=== PATIENT | male | born 1960 | race African-American/Black ===

== ENCOUNTER 2018-05-02 09:16 | Outpatient (CLI) | payer MEDICARE, MEDICAID ==
--- NOTE | 2018-05-02 11:58 | CT ---
CT LUMBAR SPINE WITHOUT CONTRAST: Technique: Multiple axial tomograms were obtained through the lumbar spine with multiplanar reconstru ction. Indication: Low back pain. FINDINGS: Lumbar vertebrae maintain normal height and alignment. The disc spaces are maintained. There are mode rate degenerative osteophytes seen anteriorly at L4-5 and L5-S1. No evidence of spondylolysis or spon dylolisthesis. There are five non-rib bearing vertebrae, however, the L5 vertebra is transitional. L1-2: No evidence of disc bulge or protrusion. No central canal or foraminal stenosis. L2-3: Mild disc bulge. Mild to moderate facet and ligamentous hypertrophy. Mild central canal stenosi s. L3-4: Broad based disc bulge flattens the thecal sac. Mild facet and ligamentous hypertrophy. Mild ce ntral canal stenosis. Mild bilateral foraminal stenosis secondary to diffuse disc bulge encroaching i nto the foramina. L4-5: Broad based disc bulge. Facet hypertrophy is prominent. The thecal sac is congenitially smaller , however, there is moderate central canal stenosis. Bilateral foraminal narrowing secondary to disc bulge and facet hypertrophy. L5 is transitional and is sacralized. Small L5-S1 disc space without disc bulge or protrusion. IMPRESSION: There are degenerative changes noted. L5 is sacralized. Disc bulges at L2-3, L3-4, and L4-5 as descri bed above. POS: [facility]
== END 2018-05-02 09:17 | disposition home or self-care (01) ==
LOC: SCSCT 09:16
PROVIDERS: ATTEND Nurse Practitioner Family
DX: M54.5 Low back pain (principal); M47.896 Other spondylosis, lumbar region; M51.86 Other intervertebral disc disorders, lumbar region
CPT/HCPCS: 72131